=== PATIENT | male | born 1955 | race Caucasian/White ===

== ENCOUNTER 2023-08-17 17:21 | Emergency (ER) | payer MEDICARE, OTHER, SELFPAY ==
[2023-08-17 17:21] VITALS: BMI 29.2
[2023-08-17 17:35] VITALS: BP 107/75
[2023-08-17 17:50] LABS: % Basophils 0.9 % (0-2); % Eosinophils 4.4 % (0-6); % Immature Granulocytes 0.2 % (0-0.5); % Lymphocytes 20.2 % (20.5-51.1); % Monocytes 10.6 % (1.7-9.3); % Neutrophils 63.7 % (42.2-75.2); Absolute Basophils 0.1 10^3/uL (0-0.2); Absolute Eosinophils 0.4 10^3/uL (0-0.7); Absolute Lymphocytes 1.6 10^3/uL (1.2-3.4); Absolute Monocytes 0.9 10^3/uL (0.1-0.6); Absolute Neutrophils 5.1 10^3/uL (1.4-6.5); Hematocrit 39.4 % (39.0-52.0); Hemoglobin 14.1 g/dL (13.0-18.0); Mean Corp Hgb Conc. 35.8 g/dL (33.0-37.0); Mean Corpuscular Hgb 30.2 pg (27.0-31.0); Mean Corpuscular Volume 84.4 fL (80.0-94.0); Mean Platelet Volume 8.8 fL (7.4-10.4); Nucleated Red Blood Cells % 0 % (-); Platelet Count 226 10^3/uL (130-400); Red Blood Cell Count 4.67 10^6/uL (4.70-6.10)
[2023-08-17 18:09] LABS: INR 1.04; PT 13.9 Sec (11.4-14.6)
[2023-08-17 18:12] LABS: ALT (SGPT) 21 U/L (0-50); AST (SGOT) 31 U/L (17-59); Albumin 4.3 g/dl (3.5-5.0); Alkaline Phosphatase 67 U/L (38-126); Blood Urea Nitrogen 17 mg/dl (9-20); Calcium 9.5 mg/dl (8.4-10.2); Carbon Dioxide 33 mmol/L (22-30); Chloride 102 mmol/L (98-107); Glucose 87 mg/dl (70-99); Sodium 137 mmol/L (135-145); Total Bilirubin 0.6 mg/dl (0.2-1.3); Total Protein 6.8 g/dl (6.3-8.2); eGFR > 60.00
[2023-08-17 18:24] LABS: Troponin I < 0.012 ng/ml
--- NOTE | 2023-08-17 20:00 | ED.GENMED ---
History of Present Illness
General
Chief Complaint: Cardiac Symptoms
Source: patient
Time Seen by Provider: 08/17/23 19:16
Travel History
Have you had any contact with someone who has COVID-19?: No
Do you have any symptoms of coronavirus? Fever > 100 degrees, chills, cough, shortness of breath, sore throat, loss of taste or smell, muscle aches, or headache?: No
History of Present Illness
History of Present Illness:
68-year-old male presents to the emergency room complaining of chest pain. Patient developed chest pain while he was sitting watching his grandson's basketball game. Pain existed in the right side of his chest rated right shoulder. Patient had an
IL in the past and this reminded him of the symptoms he experienced at that time. Patient had CABG in 2008. He denies associated shortness of breath or diaphoresis. No pain at this time.
Past History
Past History
ED Past Medical History: CAD, Hypercholesterolemia and Other (Osteoarthritis)
ED Past Surgical History: Cardiac (CABG) and Orthopedic (Bilateral hip replacement, right shoulder)
Social History
Tobacco: Non-smoker
Alcohol: None
Personal:
Living: with family
Employment: Employed
Family History
Family History: Other (Noncontributory)
Phy Exam
Physical Exam
Physical Exam:
General: Awake, Alert, Oriented X3. No acute distress.
Vitals: unremarkable
Head: Atraumatic
Eyes: Pupils equal, EOMI
Throat: Airway intact, no exudates
Neck: Trachea midline
Lungs: Clear and equal b/l
Heart: Regular rate, no murmurs
Abd: Soft, Nontender, No pulsatile mass
Neuro: Nonfocal
Skin: Warm, dry, no rash
Extremities: pulses equal b/l, no edema
Course
Orders/Labs/Results
Orders:
Orders
08/17/23 17:23
EKG [Electrocardiogram (*1)] Urgent
Reason for Study: Chest Pain
EKG- Treatment ONCE
08/17/23 17:36
Chest [CR Chest - 2 Views ] Urgent
Comment:
Reason For Exam: chest pain
08/17/23 17:40
Complete Blood Count/With Diff Urgent
Comprehensive Metabolic Panel Urgent
Prothrombin Time Urgent
Troponin I Urgent
08/17/23 20:46
Troponin I Urgent
Abnormal Lab Results
08/17/23
17:40
RBC 4.67 L 10^6/uL
(4.70-6.10)
Absolute Monos (auto) 0.9 H 10^3/uL
(0.1-0.6)
Lymphocytes % 20.2 L %
(20.5-51.1)
Monocytes % 10.6 H %
(1.7-9.3)
Carbon Dioxide 33 H mmol/L
(22-30)
08/17/23 17:40
08/17/23 17:40
Vital Signs
Initial and Last Documented VS:
Initial Vital Signs
Temp Pulse Resp BP Pulse Ox
98.8 F 61 17 107/75 99
08/17/23 17:35 08/17/23 17:35 08/17/23 17:35 08/17/23 17:35 08/17/23 17:35
Last Documented Vital Signs
Temp Pulse Resp BP Pulse Ox
98.8 F 56 15 149/83 98
08/17/23 17:35 08/17/23 21:45 08/17/23 21:45 08/17/23 21:14 08/17/23 21:45
*Pulse Oximetry
Patient hypoxic: no
*EKG
Interpreted by ED Provider?: Yes
Interpretation: abnormal
Heart Rate: 58
Rate: bradycardiac
Rhythm: sinus
[place]: normal axis
Interval: normal interval
QRS Pattern: normal QRS
Ischemia: no ischemia
*[employer] Insurance Sales Representative Interpretation
Rate: bradycardiac
Rhythm: sinus
*Critical Care Note
Total Time (30-74mins, 75-104mins- exclusive of procedures): Not Applicable
ED Attending Note
-
Portions of this chart may have been created with voice recognition software.� Occasional wrong word or��sound alike� substitutions may have occurred due to the inherent limitations of voice recognition software.
Discharge Plan
Departure
Patient Disposition: Home (Routine Discharge)
Date of Disposition: 08/17/23
Time of Disposition: 22:18
Patient with high blood pressure during this ER visit?: Yes
Condition: Good
Discharge Problem:
Chest pain
Instructions: Chest Pain CBC Follow Up, BLOOD PRESSURE
Referrals:
Junior Guerrero MD [Family Provider] -
Interventions
Interventions:
*Risk Screen - Suicide Last Done: 08/17/23 17:35
*General Assessment Last Done: 08/17/23 17:35
*Neglect/Abuse Screening Last Done: 08/17/23 17:35
ED- Fall Risk Assessment Last Done: 08/17/23 20:55
*ED COVID-19 Vaccine History Last Done: 08/17/23 17:35
ED- Pulmonary Assessment Last Done: 08/17/23 20:50
ED- Cardiac Assessment Last Done: 08/17/23 20:50
[2023-08-17 20:05] VITALS: BP 124/69
[2023-08-17 21:14] VITALS: BP 149/83
[2023-08-17 21:40] LABS: Troponin I 0.012 ng/ml
== END 2023-08-17 22:32 | disposition home or self-care (01) ==
LOC: EMR 17:21
PROVIDERS: Emergency Medicine; EMERGENCY PHYSICIAN Emergency Medicine; FAMILY PHYSICIAN Family Medicine
DX: R07.89 Other chest pain (principal); R03.0 Elevated blood-pressure reading, without diagnosis of hypertension
CPT/HCPCS: 99285; 71046; 80053; 84484; 85025; 85610; 93005

== ENCOUNTER → 2023-08-29 12:10 | Outpatient (REF) | payer MEDICARE, OTHER, SELFPAY | LOC: DHCBC/DCA 12:10 | PROVIDERS: ATTENDING PHYSICIAN Nurse Practitioner; FAMILY PHYSICIAN Family Medicine | DX: R07.89 Other chest pain (principal) | CPT/HCPCS: 78452; 93017; A9500 ==

== ENCOUNTER 2024-05-19 16:54 | Outpatient (RCR) | payer MEDICARE, OTHER, SELFPAY | END 2024-05-19 23:59 | disposition home or self-care (01) | LOC: CRHB 16:54 | PROVIDERS: ATTENDING PHYSICIAN Internal Medicine Interventional Cardiology; FAMILY PHYSICIAN Family Medicine | DX: I25.10 Atherosclerotic heart disease of native coronary artery without angina pectoris (principal); I25.2 Old myocardial infarction; Z95.5 Presence of coronary angioplasty implant and graft | CPT/HCPCS: 93798 ==

== ENCOUNTER 2024-06-01 16:56 | Emergency (ER) | payer MEDICARE, OTHER, SELFPAY ==
[2024-06-01 16:58] VITALS: BP 128/73
--- NOTE | 2024-06-01 17:49 | ED.SKININJ ---
HPI-Injury
General
Chief Complaint: Skin Surface Trauma
Source: patient
Exam Limitations: none
Time Seen by Provider: 06/01/24 17:49
Nursing documentation reviewed up to this point in time: agreed with
History of Present Illness-Injury
Initial Injury comments:
69-year-old male presents with right hand injury, he lacerated his right hand at the base of the thumb and along the index finger metacarpal with a drill he was using at home within the past hour. He had a tetanus shot 3 years ago. He is on Plavix
and Eliquis for a recent cardiac stent
Past History
Past History
ED Past Medical History: Arrthythmia (A-fib), GERD, HTN, Hypercholesterolemia and Other (Osteoarthritis)
ED Past Surgical History: Cardiac (CABG) and Orthopedic (Bilateral hip replacement, right shoulder)
Social History
Tobacco: Non-smoker
Alcohol: None
Personal:
Living: with family
Employment: Employed
Family History
Family History: Other (Noncontributory)
Review of Systems
Review of Systems
Allergies reviewed?: Yes
All Other Systems: ROS reviewed and negative except as documented in HPI and ROS
Skin: Reports other (Cut left hand)
Skin Exam
Laceration
Left Dorsal Hand:
Length in cm: 3
Orientation: vertical (distal 2/3 of wound needs closure, proximal 1/3 more of a deep skin abrasion. )
Type of Laceration: simple
Any active bleeding?: low grade venous oozing
Distal skin color and temperature: normal-warm & good color
Normal distal neurovascular exam: Yes
Range of motion: full
Phy Exam
Physical Exam
Physical Exam:
PHYSICAL EXAMINATION:
General: no apparent distress, not acutely ill
Neuro: alert and oriented.
Psychiatric: well kept. interactive and cooperative
Musculoskeletal: Full ROM of fingers, no bony tenderness. Moves with ease
Skin: Warm, pink.
Course
Orders/Labs/Results
Orders:
Orders
06/01/24 17:51
Lidocaine/Epinephrine/Tetracai [Let Topical Anesthetic Gel] 3 ml TOPICAL NOW STA
06/01/24 17:52
Lidocaine/Epinephrine/Tetracai [Let Topical Anesthetic Gel] 3 ml .ROUTE .STK-MED ONE
Vital Signs
Initial and Last Documented VS:
Initial Vital Signs
Temp Pulse Resp BP Pulse Ox
98.0 F 64 16 128/73 98
06/01/24 16:58 06/01/24 16:58 06/01/24 16:58 06/01/24 16:58 06/01/24 16:58
Last Documented Vital Signs
Temp Pulse Resp BP Pulse Ox
98.0 F 64 16 128/73 98
06/01/24 16:58 06/01/24 16:58 06/01/24 16:58 06/01/24 16:58 06/01/24 16:58
Procedures
Laceration Closure
Left Dorsal Hand:
Status of Wound: clean
Size of Wound in cm: 3
Description of Wound Edges: sharp
Preparation: cleaned with soap & water
Anesthesia: Topical-LET
Revision/Debridement: routine- no revision
Wound exploration: explored to base- no FB
Type of Closure: Dermabond-skin glue (reinforced with skin adhesive and steri strips)
MDM/Problems Addressed
MDM/Problems Addressed:
69-year-old male presents with right hand injury, he lacerated his right hand at the base of the thumb and along the index finger metacarpal with a drill he was using at home within the past hour. He had a tetanus shot 3 years ago. He is on Plavix
and Eliquis for a recent cardiac stent
Full ROM and no bony tenderness, base of wound visible, no FB, no indication for imaging,.
*Critical Care Note
Total Time (30-74mins, 75-104mins- exclusive of procedures): Not Applicable
ED Attending Note
-
Portions of this chart may have been created with voice recognition software.� Occasional wrong word or��sound alike� substitutions may have occurred due to the inherent limitations of voice recognition software.
Discharge Plan
Departure
Patient Disposition: Home (Routine Discharge)
Date of Disposition: 06/01/24
Time of Disposition: 18:44
Patient with high blood pressure during this ER visit?: No
Condition: Good
Discharge Problem:
Laceration of left hand
Instructions: Laceration Repair With Glue (DC)
Referrals:
Junior Guerrero MD [Family Provider] - As needed
Activity Restrictions/Additional Instructions:
As we discussed, keep the current dressing on for 2 days. Keep it clean and dry.
On Friday, you may remove the dressing and shower as usual. After showering pat the Steri-Strips dry, air or or blow them dry and replace a large Band-Aid or a new dressing wrap
It takes about 12 days for this area to heal.
If the Steri-Strips fall off before 12 days, that is okay just keep it protected with a large Band-Aid
The glue should slough off within the next 2 weeks.
Interventions
Interventions:
*Risk Screen - Suicide Last Done: 06/01/24 18:29
*General Assessment Last Done: 06/01/24 18:29
*Neglect/Abuse Screening Last Done: 06/01/24 18:29
*ED COVID-19 Vaccine History Last Done: 06/01/24 18:29
*Nursing Disposition Last Done: 06/01/24 18:55
ED-Skin Assessment Last Done: 06/01/24 17:17
Discharge Date and Time
Discharge Date/Time: 06/01/24 19:10
Print Language: URUGUAYAN
[2024-06-01] MEDS: LET TOPICAL ANESTHETIC GEL 3 ML TOPICAL (17:53)
== END 2024-06-01 19:10 | disposition home or self-care (01) ==
LOC: EMR 16:56
PROVIDERS: EMERGENCY PHYSICIAN Student in an Organized Health Care Education/Training Program; FAMILY PHYSICIAN Family Medicine
DX: S61.412A Laceration without foreign body of left hand, initial encounter (principal); W29.8XXA Contact with other powered hand tools and household machinery, initial encounter; I10 Essential (primary) hypertension
CPT/HCPCS: 99283; 12002

== ENCOUNTER 2024-06-18 16:25 | Outpatient (RCR) | payer MEDICARE, OTHER, SELFPAY | END 2024-06-18 23:59 | disposition home or self-care (01) | LOC: CRHB 16:25 | PROVIDERS: ATTENDING PHYSICIAN Internal Medicine Interventional Cardiology; FAMILY PHYSICIAN Family Medicine | DX: I21.4 Non-ST elevation (NSTEMI) myocardial infarction (principal); Z95.5 Presence of coronary angioplasty implant and graft; I25.10 Atherosclerotic heart disease of native coronary artery without angina pectoris | CPT/HCPCS: 93798 ==

== ENCOUNTER 2024-07-05 16:16 | Outpatient (RCR) | payer MEDICARE, OTHER, SELFPAY | END 2024-07-05 23:59 | disposition home or self-care (01) | LOC: CRHB 16:16 | PROVIDERS: ATTENDING PHYSICIAN Internal Medicine Interventional Cardiology; FAMILY PHYSICIAN Family Medicine | DX: I25.10 Atherosclerotic heart disease of native coronary artery without angina pectoris (principal); I25.2 Old myocardial infarction; Z95.5 Presence of coronary angioplasty implant and graft | CPT/HCPCS: 93798 ==

== ENCOUNTER → 2024-07-06 13:10 | Outpatient (REF) | payer MEDICARE, OTHER, SELFPAY | LOC: HWRAD 13:10 | PROVIDERS: ATTENDING PHYSICIAN Family Medicine; FAMILY PHYSICIAN Family Medicine | DX: J01.41 Acute recurrent pansinusitis (principal); R05.3 Chronic cough | CPT/HCPCS: 71046 ==

== ENCOUNTER 2024-11-30 16:57 | Emergency (ER) | payer MEDICARE, OTHER, SELFPAY ==
[2024-11-30 16:57] VITALS: BMI 28.9
[2024-11-30 17:07] VITALS: BP 141/82
[2024-11-30 17:28] LABS: % Basophils 0.9 % (0-2); % Immature Granulocytes 0.4 % (0-0.5); % Lymphocytes 18.4 % (20.5-51.1); % Monocytes 10.2 % (1.7-9.3); % Neutrophils 65.1 % (42.2-75.2); Absolute Basophils 0.1 10^3/uL (0-0.2); Absolute Eosinophils 0.4 10^3/uL (0-0.7); Absolute Lymphocytes 1.5 10^3/uL (1.2-3.4); Absolute Monocytes 0.8 10^3/uL (0.1-0.6); Absolute Neutrophils 5.2 10^3/uL (1.4-6.5); Hematocrit 40.4 % (39.0-52.0); Hemoglobin 14.2 g/dL (13.0-18.0); Mean Corp Hgb Conc. 35.1 g/dL (33.0-37.0); Mean Corpuscular Hgb 29.5 pg (27.0-31.0); Mean Platelet Volume 9.2 fL (7.4-10.4); Nucleated Red Blood Cells % 0 % (-); Platelet Count 212 10^3/uL (130-400); Red Blood Cell Count 4.81 10^6/uL (4.70-6.10); Red Cell Dist. Width 12.9 % (11.5-14.5)
[2024-11-30 17:42] LABS: ALT (SGPT) 17 U/L (0-50); AST (SGOT) 23 U/L (17-59); Alkaline Phosphatase 62 U/L (38-126); Blood Urea Nitrogen 21 mg/dl (9-20); Calcium 9.2 mg/dl (8.4-10.2); Carbon Dioxide 30 mmol/L (22-30); Chloride 104 mmol/L (98-107); Glucose 96 mg/dl (70-99); Sodium 140 mmol/L (135-145); Total Bilirubin 0.5 mg/dl (0.2-1.3); Total Protein 6.4 g/dl (6.3-8.2); eGFR > 60.00
[2024-11-30 17:53] LABS: NT-proBNP 456 pg/ml; Troponin I < 0.012 ng/ml
[2024-11-30 21:12] VITALS: BP 113/58
[2024-11-30] MEDS: TYLENOL 650 MG PO (21:24)
[2024-11-30 21:37] LABS: Troponin I < 0.012 ng/ml
[2024-11-30 22:00] VITALS: BP 120/73
--- NOTE | 2024-11-30 22:26 | ED.GENMED ---
History of Present Illness
General
Chief Complaint: Chest Pain
Time Seen by Provider: 11/30/24 20:56
History of Present Illness
History of Present Illness:
69-year-old male with prior history of CABG and stenting presenting to the ER for chest wall pain. Patient notes pain in the center of his chest since yesterday morning. Denies any exertional component to his symptoms. Denies any radiation of
pain. Denies any traumatic injury. Denies any diaphoresis. Does note that he follows with a partition making machine operator in [place]. During his prior cardiac events, does note that he had some jaw pain, had severe chest pain with radiation to his left
shoulder. Does not feel like the symptoms are consistent with prior cardiac events. Does note that he was having some belching, had chicken farm yesterday evening. Pain is worse with certain movements. Denies difficulty breathing. Denies cough
or fever. Denies additional acute medical complaints
Past History
Past History
ED Past Medical History: Arrthythmia (A-fib), GERD, HTN, Hypercholesterolemia and Other (Osteoarthritis)
ED Past Surgical History: Cardiac (CABG) and Orthopedic (Bilateral hip replacement, right shoulder)
Social History
Tobacco: Non-smoker
Alcohol: None
Personal:
Living: with family
Employment: Employed
Family History
Family History: Other (Noncontributory)
Phy Exam
Physical Exam
Physical Exam:
General: Well-appearing, no clinical signs of dehydration, nontoxic and in no acute distress
HEENT: protecting airway
Neck: appears supple
CV: Normal heart rate, regular rhythm, no evidence of cyanosis
Resp: No accessory muscle use, no increased work of breathing, lungs clear to auscultation bilaterally
Abd: No distention, nontender
Extremities: No deformities, no swelling
Neuro: alert, no focal neurologic deficit
: deferred
Rectal: deferred
Psych: Normal affect
Skin: Intact
Scores
Heart Score for Chest Pain Patients
STEMI patient?: No
History: Slightly or Non-Suspicious
ECG: Normal
Age: >/= 65 years
Risk Factors: >/= 3 Risk Factors or History of CAD
Troponin: </= Normal Limit
Heart Score for Chest Pain Patients: 4
Heart Score Risk: 20.3% MACE over next 6 weeks
Course
Orders/Labs/Results
Orders:
Orders
11/30/24 17:02
Electrocardiogram (*1) Urgent
Reason for Study: Chest Pain
EKG- Treatment ONCE
11/30/24 17:20
Complete Blood Count/With Diff Urgent
Comprehensive Metabolic Panel Urgent
Pro-BNP [NT-proBNP] Urgent
Troponin I Urgent
11/30/24 20:12
EKG- Treatment ONCE
11/30/24 20:44
CR Chest - 2 Views Urgent
Comment:
Reason For Exam: chest pain
11/30/24 21:00
ECG [Electrocardiogram (*1)] Urgent
Reason for Study: Chest Pain
11/30/24 21:02
Troponin I Urgent
11/30/24 21:12
Acetaminophen [Tylenol] 650 mg PO NOW STA
Abnormal Lab Results
11/30/24
17:20
Absolute Monos (auto) 0.8 H 10^3/uL
(0.1-0.6)
Lymphocytes % 18.4 L %
(20.5-51.1)
Monocytes % 10.2 H %
(1.7-9.3)
BUN 21 H mg/dl
(9-20)
11/30/24 17:20
11/30/24 17:20
Vital Signs
Initial and Last Documented VS:
Initial Vital Signs
Temp Pulse Resp BP Pulse Ox
98.2 F 69 16 141/82 98
11/30/24 17:07 11/30/24 17:07 11/30/24 17:07 11/30/24 17:07 11/30/24 17:07
Last Documented Vital Signs
Temp Pulse Resp BP Pulse Ox
98.2 F 59 18 120/73 98
11/30/24 17:07 11/30/24 22:15 11/30/24 22:15 11/30/24 22:00 11/30/24 22:15
MDM/Problems Addressed
MDM/Problems Addressed:
69-year-old male with history of CAD status post CABG and stenting presenting for midsternal chest pain. Vital signs are normal.
On exam patient is resting comfortably, no acute distress. Patient reports symptoms since yesterday morning. EKG obtained on arrival, nonischemic, unchanged from prior with lower suspicion for ACS. However patient with significant coronary risk
factors, so plan for laboratory analysis including troponin as well as chest x-ray imaging. Patient does note the pain is worse with certain movements. Suspect possible musculoskeletal component. Will give Tylenol for pain. Also notes some
belching, possible indigestion component, declining any medications for this.
22:35 - Patient's troponin is negative x 2. Repeat EKG is unchanged. Chest x-ray is negative for acute cardiopulmonary disease. On reassessment, patient does note some interval improvement after Tylenol. I again suspect possible musculoskeletal
component. Ultimately feel stable for discharge with close outpatient cardiology follow-up given his cardiac history. Patient notes that he has an appointment with his partition making machine operator on . Patient in agreement with this plan. Return
precautions discussed and patient verbalized understanding
*EKG
Interpreted by ED Provider?: Yes
EKG Intrepretation Date: 11/30/24
EKG Intrepretation Time: 22:44
Interpretation: normal
Comparison EKG: no changes (08/17/23)
Heart Rate: 66
Rate: normal
Rhythm: sinus
[place]: normal axis
Interval: normal interval
QRS Pattern: normal QRS
Ischemia: no ischemia
*Critical Care Note
Total Time (30-74mins, 75-104mins- exclusive of procedures): Not Applicable
ED Attending Note
-
Portions of this chart may have been created with voice recognition software.� Occasional wrong word or��sound alike� substitutions may have occurred due to the inherent limitations of voice recognition software.
Discharge Plan
Departure
Patient Disposition: Home (Routine Discharge)
Date of Disposition: 11/30/24
Time of Disposition: :25
Patient with high blood pressure during this ER visit?: No
Condition: Good
Discharge Problem:
Chest wall pain
Instructions: Chest pain - Discharge instructions
Referrals:
Junior Guerrero MD [Family Provider] -
Activity Restrictions/Additional Instructions:
You were seen in the emergency department for chest pain
You were found to have normal blood work including cardiac enzymes, and a reassuring EKG. Please follow-up with your partition making machine operator as scheduled on .
Please follow-up closely with your primary care physician.
Return to the emergency department for any worsening of your symptoms, or any development of chest pain, difficulty breathing, abdominal pain with persistent vomiting and inability to tolerate food or liquid by mouth (concern for dehydration),
weakness, headache or confusion, fever greater than 100.4, or any additional symptoms that are concerning to you.
Thank you for choosing [facility].
Interventions
Interventions:
*Risk Screen - Suicide Last Done: 11/30/24 17:10
*General Assessment Last Done: 11/30/24 17:10
*Neglect/Abuse Screening Last Done: 11/30/24 21:25
*ED- Fall Risk Assessment Last Done: 11/30/24 21:25
*ED COVID-19 Vaccine History Last Done: 11/30/24 21:25
*Nursing Disposition Last Done: 11/30/24 22:39
ED- Cardiac Assessment Last Done: 11/30/24 21:25
Discharge Date and Time
Discharge Date/Time: 11/30/24 22:40
Print Language: [place]
== END 2024-11-30 22:40 | disposition home or self-care (01) ==
LOC: EMR 16:57
PROVIDERS: Emergency Medicine; EMERGENCY PHYSICIAN Student in an Organized Health Care Education/Training Program; FAMILY PHYSICIAN Family Medicine
DX: R07.89 Other chest pain (principal); E78.00 Pure hypercholesterolemia, unspecified; I48.91 Unspecified atrial fibrillation; Z95.1 Presence of aortocoronary bypass graft; Z96.643 Presence of artificial hip joint, bilateral
CPT/HCPCS: 99285; 71046; 80053; 83880; 84484; 85025; 93005

== ENCOUNTER → 2025-04-22 12:04 | Outpatient (REF) | payer MEDICARE, OTHER, SELFPAY | LOC: RAD 12:04 | PROVIDERS: ATTENDING PHYSICIAN Specialist; FAMILY PHYSICIAN Family Medicine | DX: R10.30 Lower abdominal pain, unspecified (principal) | CPT/HCPCS: 74178; Q9967 ==